=== PATIENT | female | born 1960 | race Caucasian/White ===

== ENCOUNTER 2017-05-12 06:51 | Emergency (ER) | payer OTHER ==
[~2017-05-12] VITALS: Ht 152.4 cm; Wt 65.5 kg
[2017-05-12 07:03] VITALS: BP 133/75; PULSE 95; RESP 16; O2SAT 98
[2017-05-12] MEDS ORDERED: 0.9% Sodium Chloride 1,000 ML IV ONE (07:20)
--- NOTE | 2017-05-12 07:20 | ED.REPORT ---
HPI-General Illness Date of Service May 12, 2017 ED Provider: Sixto Pereira MD Pt is a 57 y/o female with a history of hypertension and vertigo who present to the ED via EMS c/o lightheadedness onset 03:30 this morning upon waking. She states she got up to go the bathroom and noticed that she didn't feel right. After she laid back down, her symptoms worsened. Additional symptoms include sweats and sinus pressure. She denies dizziness, vision changes, neck pain, fever, chills, headache, SOB, chest pain, diarrhea, constipations, nausea, vomiting, hematuria, hematochezia, lateralized weakness, numbness, tingling, difficulty speaking, or any other symptoms. She states she has always had sinus problems and vertigo, but states this is "much different". Medication list includes estradiol and lisinopril. Nursing Notes Stated Complaint: DIZZY, LIGHT HEADED Chief Complaint: General Complaint Nursing Notes Reviewed: Yes Allergies: Coded Allergies: No Known Allergies (Unverified , 05/12/17) Scheduled PRN Meclizine (Bonine) 25 Mg Tab.chew 25 MG PO BID PRN PRN For Dizziness General Time Seen by MD: 06:57 Chief Complaint Other (lightheadedness ) Hx Obtained From: Patient, Spouse Arrived By: Ambulance Sudden in Onset?: Yes Onset Occurred: 1 - 4 hours ago Symptom Duration: Since onset Severity: Current: No pain currently Severity: Maximum: No pain Additional Notes: sweats, sinus pressure Pertinent Negative: Pt denies other symptoms Exacerbated by: Standing up Relieved by: Remaining still Recent Healthcare: No recent doctor visit, No recent hospitalization Similar Sx Previous: No Past Medical History Past Medical History Constipation Vertigo Reports: Hypertension Past Surgical History Anal fissure Eye surgery Reports: , Hysterectomy Family History Mother: RA, heart disease Father: MDS Smoking History Former Smoker Social History Alcohol Use: "Social" Drug Use: Denies drug use Other Social History: Good social support Ambulatory Status Independent Review of Systems +sweats No vertigo No expressive aphasia no tingling Full Review of Systems Constitutional: Denies: Chills, Fever Eyes: Denies: Visual loss bilateral Ears / Nose / Throat: Reports: Sinus problem (pressure) Respiratory: Denies: Shortness of breath Cardiovascular: Denies: Chest pain GI: Denies: Constipation, Diarrhea, Hematochezia, Nausea, Vomiting Female: Denies: Hematuria Musculoskeletal: Denies: Neck pain Neurologic: Reports: Lightheaded, Denies: Dizziness, Focal weakness, Headache, Numbness, Vision change Complete sys rev & neg: except as marked. Physical Exam Nursing note and vitals reviewed. Constitutional: Well-developed, well-nourished. Not diaphoretic. Head: Normocephalic and atraumatic. Ear/Mouth/Throat: Oropharynx is clear but dry. No oropharyngeal exudate. Tympanic membranes clear bilaterally. Eyes: EOM are normal. Pupils are equal, round, and reactive to light. No abnormal nystagmus. Visual ramos intact. Neck: Supple, no tracheal deviation. Cardiovascular: Normal rate, regular rhythm. Equal and intact distal pulses throughout. No murmurs, rubs, or gallops. Upon standing, patient gets tachycardic to the 120s. Pulmonary/Chest: Effort normal and breath sounds normal. No respiratory distress. Abdominal: Soft. No distension. There is no tenderness, rebound, or guarding. Bowel sounds present. Musculoskeletal: Range of motion grossly intact, moving all extremities. No edema or tenderness appreciated. Neurological: AOx3. Grossly nonfocal exam. Strength and sensation intact and equal to bilateral upper and lower extremities. Normal finger to nose testing. No pronator drift. Negative Romberg. Normal [id number]-gn-ccex movement. Skin: Warm and dry, no rashes or pallor appreciated. Psychiatric: Appropriate mood and affect. Behavior appears normal. Vital Signs Vital Signs Date Time Temp Pulse Resp B/P Pulse Ox O2 Delivery O2 Flow Rate FiO2 05/12/17 11:51 76 18 111/56 96 Room Air 05/12/17 11:00 87 13 126/72 98 Room Air 05/12/17 09:10 75 16 119/61 97 Room Air 05/12/17 07:03 36.8 95 16 133/75 98 Room Air Interpretation & Diagnostics Brain MRI with and without contrast: IMPRESSION: 1. No acute intracranial hemorrhage or ischemia. 2. No focal parenchymal abnormalities or abnormal enhancement. Dictated by: Luis Antonio Berman M.D. on 05/12/2017 at 9:24 Approved by: Luis Antonio Berman M.D. on 05/12/2017 at 9:27 Lab Results Interpretation Result Diagram: 05/12/17 0726 05/12/17 0726 Test 05/12/17 07:26 05/12/17 07:30 05/12/17 07:34 White Blood Count 10.0th/mm3 (3.8-10.1) Red Blood Count 4.88mil/mm3 (3.90-5.20) Hemoglobin 15.0g/dL (12.0-15.6) Hematocrit 42.7% (35.0-46.0) Mean Corpuscular Volume 87.5fL (81-100) Mean Corpuscular Hemoglobin 30.7pg (27.0-35.0) Mean Corpuscular Hemoglobin Concent 35.1% (32.0-37.0) Red Cell Distribution Width 12.6% (12.3-15.4) Platelet Count 367bil/L (150-400) Neutrophils (%) (Auto) 73.5% (40-74) Lymphocytes (%) (Auto) 17.7% (14-46) Monocytes (%) (Auto) 6.1% (4-12) Eosinophils (%) (Auto) 2.1% (0-5) Basophils (%) (Auto) 0.3% (0-3) Sodium Level 141mEq/L (134-144) Potassium Level 3.6mEq/L (3.5-5.2) Chloride Level 101mEq/L (97-108) Carbon Dioxide Level 24mmol/L (18-29) Blood Urea Nitrogen 12mg/dL (6-24) Creatinine 0.67mg/dL (0.57-1.00) Estimat Glomerular Filtration Rate 130mL/min (>59) Glucose Level 124mg/dL (60-99) Calcium Level 9.0mg/dL (8.5-10.1) Magnesium Level 1.8mg/dL (1.6-2.6) Total Bilirubin 0.3mg/dL (0.0-1.2) Aspartate Amino Transf (AST/SGOT) 16U/L (0-50) Alanine Aminotransferase (ALT/SGPT) 12U/L (0-32) Alkaline Phosphatase 64U/L (25-150) Troponin T 0.010ug/L (0.0-0.011) Total Protein 7.2g/dL (6.4-8.4) Albumin 4.1g/dL (3.4-5.0) Alcohols < 10mg/dL (0-10) Urine Color Straw (YELLOW) Urine Appearance Hazy (CLEAR,HAZY) Urine pH 6.5 (5.0-8.0) Urine Specific [place] 1.005 (1.003-1.035) Urine Protein Negativemg/dL (NEG,TRACE) Urine Glucose (UA) Negativemg/dL (NEGATIVE) Urine Ketones Negativemg/dL (NEGATIVE) Urine Occult Blood Negative (NEGATIVE) Urine Nitrite Negative (NEGATIVE) Urine Bilirubin Negative (NEGATIVE) Urine Urobilinogen Normalmg/dL (NORMAL) Urine Leukocyte Esterase Negative (NEGATIVE) Urine RBC 0-2/hpf (0-2) Urine WBC 0-5/hpf (0-5) Urine Epithelial Cells Occasional/hpf (NONE-MOD) Urine Crystals None seen (NONE SEEN) Urine Bacteria Moderate/hpf (NONE-FEW) Urine Hyaline Casts None/lpf (NONE) Urine Granular Casts None seen (NONE SEEN) Urine Waxy Casts None seen (NONE SEEN) Urine Red Blood Cell Casts None seen (NONE SEEN) Urine White Blood Cell Casts None seen (NONE SEEN) Urine Mucus None seen (None Seen) Urine Trichomonas None seen (NONE SEEN) Urine Yeast None (NONE SEEN) Urinalysis Comment None Urine Culture Reflexed Indicated Lactic Acid Level 1.7mmol/L (0.4-2.0) ECG Interpretation ECG Interpretation: Sinus rhythm, rate 89 Probable left atrial enlargement Low voltage, extremity leads Time: 07:15 Interpreted by: ED physician X-Ray Chest Interpretation Chest Xray Interpretation: IMPRESSION: No acute cardiopulmonary disease. Dictated by: Ben Zheng M.D. on 05/12/2017 at 8:59 Approved by: Ben Zheng M.D. on 05/12/2017 at 8:59 View: Portable, 1 view Interpretation / Wet Read by: Interpret - Radiologist Re-Eval/Medical Decision Med Decision/Clinical Course In summary, 57-year-old female presenting to the ED for evaluation of dizziness first noted last night. Differential is broad and includes dysrhythmia, CVA, central/peripheral vertigo, etc. Patient has not been having any chest pain or palpitations, troponin negative, EKG without any acute ischemic changes or concerning findings that would suggest a dysrhythmia at this time. She did have some difficulty with standing and ambulating secondary to feeling unsteady despite an otherwise normal neurologic exam. She also became tachycardic upon standing with normal blood pressure; patient given IV fluids, meclizine. Given her inability to ambulate and not feeling like typical vertigo, an MRI was obtained; this was negative for acute abnormality or evidence of stroke, rest of labs reviewed, notable for CMP, CBC grossly within normal limits. Lactic acid 1.7. Urinalysis demonstrates bacteria, however no leukocyte esterase, nitrites, or white blood cells. On reassessment, patient endorses marked improvement in symptoms. Able will ambulate without difficulty. Given this, reasonable to discharge home with very careful return precautions, PCP follow- up tomorrow for reassessment. Patient agreeable to the plan as stated, no further questions. Source of Hx: Old records Time of Eval: 11:19 Patient Status: Condition improved Re-Evaluation/Progress Note: Patient rechecked. Discussed plan for discharge. Patient understands and agrees with plan. F/U instructions and RTER warnings given. All questions addressed at this time. Counseled Regarding: Diagnosis, Lab results, Need for follow-up, When/why to return to ED Discharge & Departure Primary Impression: Dizziness Disposition: Home Discharge Condition All VS Reviewed: Yes Condition: Improved Patient Instructions: Dizziness (ED) Additional Instructions: Thank you for entrusting us with your care. Your examination, labs, x-ray, and MRI are reassuring. We did not find a dangerous cause for your symptoms at this time. However, as discussed, please follow up with your primary care doctor tomorrow for re-evaluation. Please return to the emergency department for any worsening dizziness, neck pain , headache, chest pain, shortness of breath, loss of consciousness, vomiting, fever, or any other new or concerning symptoms. Please read the attached instructions. Referrals: Yinka Bowman MD (PCP) [facility] Scribe Attestation Portions of this note were transcribed by Zeynep Bran and Rochelle Gordon. I, Dr. Pereira, personally performed the history, physical exam and medical decision-making; I reviewed and confirmed the accuracy of the information in the transcribed note. Signed by Zeynep Dunham, 05/12/17. copies to: [facility]; Yinka Bowman MD, William B MD May 12, 2017 07:20 Zeynep Bran May 12, 2017 07:25 ROCHELLE GORDON May 12, 2017 08:57
[2017-05-12 07:34] LABS: BASOPHILS % (AUTO) 0.3 % (0-3); EOSINOPHILS % (AUTO) 2.1 % (0-5); MONOCYTES % (AUTO) 6.1 % (4-12); Mean Corpuscular Hemoglobin 30.7 pg (27.0-35.0); Mean Corpuscular Volume 87.5 fL (81-100); NEUTROPHILS % (AUTO) 73.5 % (40-74); Platelet Count 367 bil/L (150-400)
[2017-05-12 08:16] LABS: APPEARANCE,URINE HAZY (CLEAR,HAZY); COLOR,URINE STRAW (YELLOW); OCCULT BLOOD,URINE NEGATIVE (NEGATIVE); PH,URINE 6.5 (5.0-8.0); UROBILINOGEN,URINE NORMAL (NORMAL)
[2017-05-12 08:17] LABS: Magnesium 1.8 mg/dL (1.6-2.6)
--- NOTE | 2017-05-12 09:01 | DRSVH ---
PROCEDURE: X-RAY CHEST ONE VIEW, PORTABLE ([id number]) INDICATIONS: 57 year-old female with lightheadedness. TECHNIQUE: One view of the chest was acquired. COMPARISON: None. FINDINGS: Surgical changes and devices: None. Lungs and pleura: No pleural effusions or pneumothorax. Lungs are clear. Mediastinum: Mediastinal contours appear normal. Heart size is normal. Bones and chest wall: No suspicious bony lesions. Overlying soft tissues appear unremarkable. IMPRESSION: No acute cardiopulmonary disease. Dictated by: Ben Zheng M.D. on 05/12/2017 at 8:59 Approved by: Ben Zheng M.D. on 05/12/2017 at 8:59
[2017-05-12 09:10] VITALS: BP 119/61; PULSE 75; RESP 16; O2SAT 97
--- NOTE | 2017-05-12 10:28 | DRSVH ---
PROCEDURE: MRI BRAIN WITH AND WITHOUT CONTRAST ([id number]) INDICATIONS: unable to stand, dizzy; eval cva, infection, etc TECHNIQUE: Noncontrast axial T1 spin echo, axial T2 fast spin echo, sagittal and axial FLAIR, coronal T2 fast sp in echo, axial gradient echo, axial diffusion and ADC through the brain. After the administration of contrast, axial and coronal 3D VIBE or T1 spin echo with fat saturation through the brain. COMPARISON: None. FINDINGS: Image quality: Diagnostic. Brain: There is no acute intra-axial or extra-axial hemorrhage. No extra-axial fluid collection is i dentified. There is no midline shift or mass effect. The orbits are grossly unremarkable. No focal parenchymal abnormalities or masses are identified. There is no parenchymal edema. No rest ricted diffusion is present. The midline intracranial structures are within normal limits. The louann r expected intracranial flow voids are visualized and unremarkable. No abnormal enhancement is present on the postcontrast images. No enhancing lesions are identified. The ventricles and cortical sulci are age-appropriate. Bones: The imaged osseous structures are grossly intact. No suspicious osseous lesions are identifie d. There is mild mucosal thickening present involving the left maxillary sinus and the ethmoid air c ells. There also may be mild mucosal thickening of the left frontal sinus. No air-fluid levels are identified. Otherwise, the paranasal sinuses and mastoid air cells are clear. Extracranial soft tissues: The imaged overlying soft tissues of the face and head are grossly unremar kable. IMPRESSION: 1. No acute intracranial hemorrhage or ischemia. 2. No focal parenchymal abnormalities or abnormal enhancement. Dictated by: Luis Antonio Berman M.D. on 05/12/2017 at 9:24 Approved by: Luis Antonio Berman M.D. on 05/12/2017 at 9:27
[2017-05-12 11:00] VITALS: BP 126/72; PULSE 87; RESP 13; O2SAT 98
[2017-05-12] MEDS ORDERED: MECL-114 PO (11:33)
[2017-05-12 11:51] VITALS: BP 111/56; PULSE 76; RESP 18; O2SAT 96
== END 2017-05-12 11:45 | disposition home or self-care (01) ==
LOC: EDBD 06:51 → SED 06:51
DX: R42 Dizziness and giddiness (principal); I10 Essential (primary) hypertension; Z87.891 Personal history of nicotine dependence
CPT/HCPCS: 36415; 70553; 71010; 80053; 81000; 82948; 83605; 83735; 84484; 85025; 87086; 87088; 93005; 96360; 99285; A9585; G0480; J7030